=== PATIENT | female | born 2000 | race Caucasian/White ===

== ENCOUNTER 2021-09-10 09:38 | Emergency (ER) | payer MEDICAID ==
[~2021-09-10] VITALS: Ht 167.6 cm; Wt 63.6 kg
[2021-09-10 09:46] VITALS: BP 144/92
[2021-09-10] MEDS ORDERED: ceFAZolin 1GM/D5W- ADD-VANTAGE 50 ML IV STA (11:27)
[2021-09-10] MEDS ORDERED: LIDOcaine 1% 30ml preserv. free vial IJ STA (12:59)
[2021-09-10] MEDS ORDERED: CEPH500C2 PO (14:22)
== END 2021-09-10 14:32 | disposition home or self-care (01) ==
LOC: ER 09:38
DX: O9A.211 Injury, poisoning and certain other consequences of external causes complicating pregnancy, first trimester (principal); S61.211A Laceration without foreign body of left index finger without damage to nail, initial encounter; Z3A.12 12 weeks gestation of pregnancy; W45.8XXA Other foreign body or object entering through skin, initial encounter; Y93.89 Activity, other specified; Y92.89 Other specified places as the place of occurrence of the external cause; Y99.8 Other external cause status
CPT/HCPCS: 12002; 73140; 96365; 99284; A6222; J0690; J7030; 29125; A6449